=== PATIENT | female | born 1995 ===

== ENCOUNTER 2021-10-10 11:11 | Outpatient (CLI) | payer OTHER ==
[~2021-10-10 11:11] MED LIST: PROVENTIL0.5 ML/2.5
== END 2021-10-10 11:16 | disposition home or self-care (01) ==
LOC: RAD 11:11
PROVIDERS: ATTEND Orthopaedic Surgery Sports Medicine
DX: S99.929A Unspecified injury of unspecified foot, initial encounter (principal)